=== PATIENT | female | born 1970 | race American Indian/Alaskan Native ===

== ENCOUNTER 2018-03-12 09:31 | Outpatient (CLI) | payer OTHER ==
--- NOTE | 2018-03-12 15:03 | Cat Scan Report ---
CTA NECK: HISTORY: Occlusion and stenosis of right carotid artery. TECHNIQUE: Helical CT following IV contrast. Sagittal and coronal reformatted images. 3D volume rendering technique. Stenosis was calculated using NASCET criteria. FINDINGS: The visualized aortic arch, innominate artery and proximal bilateral subclavian arteries are widely patent with less than 20% stenosis. Within the right carotid system: No significant disease. There is less than 20% stenosis. Within the left carotid system: No significant disease. There is less than 20% stenosis. The cervical vertebral arteries are patent with less than 20% stenosis. The right vertebral artery is dominant. IMPRESSION: Unremarkable CTA of the neck. No hemodynamically significant stenosis.
== END 2018-03-12 09:32 | disposition home or self-care (01) ==
LOC: CT 09:31
PROVIDERS: ATTEND Surgery Vascular Surgery
DX: I65.21 Occlusion and stenosis of right carotid artery (principal)
CPT/HCPCS: 70498; Q9967